=== PATIENT | female | born 1990 | race Caucasian/White ===

== ENCOUNTER 2017-12-20 08:00 | Day surgery (SDC) | payer OTHER ==
--- NOTE | 2017-12-20 06:03 | PDGENHP ---
History and Physical History and Physical: Assessment and Plan: 1. Dysmenorrhea Evelio's symptoms and exam findings are consistent with endometriosis. We reviewed all conservative and surgical options. Unfortunately she has failed medical management. As a result she is leaning towards robotic excision. She is going to give this consideration and determine when the best time would be. She is considering waiting until the end of the summer. She will call back when she is ready to schedule. If she has any questions or desires other treatment she will contact us. I likely would schedule about an hour and a half for OR room time. 2. Dyspareunia, female Subjective: Patient ID: Michelle James is a 27 y.o. female who presents to [facility] for pelvic pain. GILMA Fraser is a 27-year-old 0 woman. She has had dysmenorrhea for many years. She saw a practitioner who placed a Mirena IUD about 2 years ago. It did not improve her symptoms. In fact it made him somewhat worse. She also felt that and her partner felt that with intercourse. It was removed after 8 months. She had a pelvic ultrasound which was reportedly normal. He recently saw Dr. Cr Perry who discussed using ibuprofen, Neurontin, or laparoscopy. Her cycles are regular every 28 days. She will bleed 3-5 days with a light flow. The pain begins 4 days before her menses. The first 2 days of flow causes excruciating pain. It is mostly in the right lower quadrant with radiation towards her groin. She has occasional left-sided pain. She has deep dyspareunia. She uses a cannabis lubricant to try to help with the discomfort. She has no dyschezia chest pain or shortness of breath. She also has been trying an anti-inflammatory diet. She has used a control pill in the past but she felt very bad on it. She lives in [place]. She works in [employer]. She was referred by an acquaintance. PastMedicalHistory Past Medical History: Diagnosis Date Allergy to pollen Depression Depression Dermatologic disease Psoriasis Urinary tract infection PastSurgicalHistory Past Surgical History: Procedure Laterality Date WISDOM TOOTH EXTRACTION CURRENT MEDICATIONS: Current Outpatient Prescriptions Medication Sig ASHWAGANDHA ROOT EXTRACT,BULK, MISC ibuprofen (ADVIL,MOTRIN) 200 mg tablet Take 200 mg by mouth as needed for Pain. Take with food. multivitamin (HEXAVITAMIN) per tablet Take 1 tablet by mouth daily. No current facility-administered medications for this visit. ALLERGIES: Patient has no known allergies. I have reviewed, verified and agree with the past medical, surgical, , family, social and ROS history as documented by the RN today. Objective: Vital Signs: Visit Vitals BP 108/66 Pulse 75 Temp 37.3 C (99.2 F) (Temporal Artery) Resp 14 Ht 1.664 m (5' 5.5") Wt 53.3 kg (117 lb 6.4 oz) BMI 19.24 kg/m Physical Exam Gen: This is an alert, well developed woman in no distress. Neuro: She moves all extremities. Psych: She is appropriate, oriented, with normal affect. Neck: No thyroid enlargement, adenopathy, or tenderness. Lungs: Clear to ascultation, no wheezes or rales. Heart: Regular rate and rhythm without obvious murmurs. Abdomen: Soft, non-tender, without guarding, rebound, or masses. Extremities: No edema or cyanosis. Pelvic: Normal external genitalia. Non-gaping introitus, vagina without discharge, adequately estrogenized, no significant prolapse. Cervix without lesions or discharge. Uterus normal sized, mobile. Adnexa non-tender without enlargement. She is tender surrounding the cervix and exquisitely in the posterior cul-de-sac. There is a nodular area on the left side of the cul-de- sac. DATA: I have reviewed the pertinent medical records. TIME/COMMUNICATION: I personally spent a total of 50 minutes. Of that 40 minutes was counseling/ coordination of patient's care. See my note above for details. Yasmany Lincoln MD Board Certified Female Pelvic Medicine and Reconstructive Surgery Director of Minimally Invasive Gynecologic Surgery, [facility] Surgeon in Minimally Invasive Gynecologic Surgery [facility] Surgeon in Robotic Surgery
[2017-12-20] MEDS ORDERED: PHENAZOPYRIDINE HCL 200 MG TAB PO ONE (08:07)
[2017-12-20] MEDS ORDERED: ceFAZolin 2 GM/DEXTROSE 100 ML IV ONE (08:07)
[2017-12-20] MEDS ORDERED: GABAPENTIN 300 MG CAP PO ONE (08:07)
[2017-12-20] MEDS ORDERED: ACETAMINOPHEN 500 MG TAB PO ONE (08:07)
[2017-12-20] MEDS ORDERED: BUPIVACAINE/EPI 0.5% 30 ML SDV ONE (08:20)
[2017-12-20] MEDS ORDERED: LIDOCAINE 1% 2 ML INJ ID PRN (08:30)
[2017-12-20] MEDS ORDERED: LR 1,000 ML IV ONE (08:30)
--- NOTE | 2017-12-20 09:12 | PDHPUP ---
History & Physical Update H&P update statement: This history and physical update is based on an assessment of the patient which was completed after admission or registration (within 24 hours), but prior to the surgery/procedure. H&P update: H&P reviewed & patient examined, no change in patient's condition since H&P completed
[2017-12-20] MEDS ORDERED: MIDAZOLAM 2 MG/2 ML VIAL IVP ONE (09:18)
--- NOTE | 2017-12-20 09:18 | PDANEPAE ---
ANE History of Present Illness lap ANE Past Medical History - Cardiovascular History Hx Hypertension: No Hx Arrhythmias: No Hx Chest Pain: No Hx Coronary Artery / Peripheral Vascular Disease: No Hx CHF / Valvular Disease: No Hx Palpitations: No - Pulmonary History Hx COPD: No Hx Asthma/Reactive Airway Disease: No Hx Recent Upper Respiratory Infection: No Hx Oxygen in Use at Home: No Hx Sleep Apnea: No Sleep Apnea Screening Result - Last Documented: Negative - Neurologic History Hx Cerebrovascular Accident: No Hx Seizures: No Hx Dementia: No - Endocrine History Hx Diabetes: No Hypothyroid: No Hyperthyroid: No - Renal History Hx Renal Disorders: No - Liver History Hx Hepatic Disorders: No - Neurological & Psychiatric Hx Hx Neurological and Psychiatric Disorders: Yes Neurological / Psychiatric History Comment: depression - Cancer History Hx Cancer: No - Congenital Disorder History Hx Congenital Disorders: No - GI History Hx Gastrointestinal Disorders: No - Other Health History Other Health History: psoriasis. endometriosis - Chronic Pain History Chronic Pain: No - Surgical History Prior Surgeries: wisdom teeth ANE Review of Systems Review of systems is: negative Review of Systems: - Exercise capacity Exercise capacity: >=4 METS METS (RN): 5 METS ANE Patient History - Allergies Allergies/Adverse Reactions: latex Allergy (Verified 12/14/17 10:18) Other-Enter Comments - Home Medications Home medications: home medication list seen and reviewed Home Medications: Herbals/Supplements -Info Only 12/14/17 [Last Taken Unknown] - NPO status NPO Status: no food or drink >8 hours NPO Since - Liquids (Date): 12/20/17 NPO Since - Liquids (Time): 06:00 NPO Since - Solids (Date): 12/19/17 NPO Since - Solids (Time): 20:00 - Anes Hx Anes Hx: no prior problems Hx Anesthesia Complications (with details): car-sick - Smoking Hx Smoking Status: Former smoker - Family Anes Hx Family Hx Anesthesia Complications: none ANE Labs/Vital Signs - Vital Signs Blood Pressure: 120/75 Heart Rate: 76 Respiratory Rate: 16 O2 Sat (%): 100 Height: 167.64 cm Weight: 52.163 kg ANE Physical Exam - Airway Mallampati Score: Class 1 Mouth exam: normal dental/mouth exam - Pulmonary Pulmonary: no respiratory distress - Cardiovascular Cardiovascular: regular rate and rhythym - ASA Status ASA Status: I ANE Anesthesia Plan Anesthesia Plan: general endotracheal anesthesia
[2017-12-20] MEDS ORDERED: SCOPOLAMINE HYDROBROMIDE 1 MG/3 DAYS PATCH TD ONE ×2 (09:19→09:30)
[2017-12-20] MEDS ORDERED: ROCURONIUM 50 MG/5 ML VIAL ONE (09:26)
[2017-12-20] MEDS ORDERED: DEXAMETHASONE 4 MG/ML VIAL ONE (09:26)
[2017-12-20] MEDS ORDERED: fentaNYL 100 MCG/2 ML INJ ONE ×2 (09:26→11:15)
[2017-12-20] MEDS ORDERED: ONDANSETRON 4 MG/2 ML VIAL ONE ×2 (09:26→13:34)
[2017-12-20] MEDS ORDERED: KETOROLAC 30 MG/1 ML SDV ONE (09:26)
[2017-12-20] MEDS ORDERED: LIDOCAINE 2% 5 ML SDV ONE (09:27)
[2017-12-20] MEDS ORDERED: PROPOFOL 200 MG/20 ML VIAL ONE (09:27)
[2017-12-20] MEDS ORDERED: SUGAMMADEX SODIUM 200 MG/2 ML VIAL IVP ONE (10:41)
--- NOTE | 2017-12-20 10:56 | POSTOPPROG ---
Post Op Note Date of Operation: 12/20/17 Surgeon: Yasmany Lincoln Hydrometer Tester: Silvana diaz Anesthesiologist: Juan Braun Anesthesia: GET(General Endotracheal) Pre-op Diagnosis: Endometriosis Post-op Diagnosis: Same Procedure: Robotic excision of endo, bilat ureterolysis and ovarian pexy Findings: Endo Inf/Abcess present in the surg proc area at time of surgery?: No EBL: Minimal Complications: None
[2017-12-20] MEDS ORDERED: NS 500 ML IV PRN (11:07)
[2017-12-20] MEDS ORDERED: PROMETHAZINE HCL 25 MG/ML INJ IVP PRN (11:07)
[2017-12-20] MEDS ORDERED: ALBUTEROL 3 ML DEYVIAL IH PRN (11:07)
[2017-12-20] MEDS ORDERED: ONDANSETRON 4 MG/2 ML VIAL IVP PRN (11:07)
[2017-12-20] MEDS ORDERED: NALOXONE HCL 0.4 MG/ML INJ IVP PRN (11:07)
--- NOTE | 2017-12-20 11:07 | POSTANESTH ---
Post Anesthetic Evaluation Cardiovascular Status: Normal, Stable Respiratory Status: Normal, Stable Level of Consciousness/Mental Status: Can Participate in Eval Pain Control: Adequate, Prn Tx Ordered Nausea/Vomiting Control: Adequate, Prn Tx Ordered Complications Possibly Related to Anesthesia: None Noted
[2017-12-20] MEDS: fentaNYL 100 MCG/2 ML INJ IVP PRN ×3 (11:17→11:36)
[2017-12-20] MEDS ORDERED: HYDROCODONE/APAP 5/325 TAB PO ONE (12:45)
[2017-12-20 12:53] VITALS: BP 127/78
--- NOTE | 2017-12-20 18:16 | GOP ---
[f rep st] OPERATIVE REPORT DATE OF OPERATION: 12/20/2017 SURGEON: Yasmany Lincoln MD PRIMING MIXTURE CARRIER: Silvana Horowitz CFA ANESTHESIA: General. PREOPERATIVE DIAGNOSIS: 1. Endometriosis. 2. Dysmenorrhea. 3. Cyclic pelvic pain. POSTOPERATIVE DIAGNOSIS: 1. Endometriosis. 2. Dysmenorrhea. 3. Cyclic pelvic pain. PROCEDURE PERFORMED: 1. Robotic assisted excision of endometriosis in posterior cul-de-sac and bilateral ovarian fossae. 2. Bilateral ureterolysis. 3. Bilateral ovariopexy. FINDINGS: SPECIMENS: Pelvic peritoneum with endometriosis. ESTIMATED BLOOD LOSS: Scant. DESCRIPTION OF PROCEDURE: The patient was taken to the operating room. She was identified. General anesthesia was administered and found to be adequate. She was placed in the lithotomy position and prepared and draped in normal sterile fashion. A Mcnair catheter was placed in her bladder. A Hulka tenaculum was placed in the uterus for manipulation. A 1 cm infraumbilical incision was made with scalpel. The Veress needle with CO2 gas wand was advanc ed into the peritoneal cavity. The abdomen was insufflated with carbon dioxide gas. The 12 mm troca r, followed by the laparoscope were then inserted. The upper abdomen was unremarkable. No evidence of endometriosis on either diaphragm, liver, stomach, or gallbladder. 2 lateral ports on the left un lacey direct visualization. She then was placed in Trendelenburg position and the Da Abraham robot docke d on the left side. The instruments were then brought into the abdominal cavity under direct visuali zation. The pelvis was carefully examined. The anterior cul-de-sac was free of endometriosis. She had a per itoneal window in the posterior cul-de-sac underneath the cervix, more to the left of midline, than t he right. She had several saccular type lesions in the posterior cul-de-sac peritoneum just distal t o the rectum. She had a vesicular and multiple lehman lesions of endometriosis in both ovarian fossae o verlying both ureters. No endometriosis was seen on either ovary, the fallopian tube, or the uterus. The entire posterior cul-de-sac peritoneum from the distal rectum up to the cervix and laterally to i nclude both uterosacral ligaments was completely excised. A bilateral ovariopexy was performed given cyclic pelvic pain. Each ovary was attached to the ipsilateral round ligaments near the internal in guinal ring with 3-0 Vicryl Rapide suture. The patient required a bilateral ureterolysis to safely r emove all endometriosis overlying both ureters, in the ovarian fossae. The peritoneum at the pelvic brim was incised. The ureters were gently dissected free from the pelvic brim all the way down to th e uterine arteries, lateralizing them off the overlying peritoneum and endometriosis. Once this was accomplished, the overlying peritoneum and endometriosis was completely excised. The p kilo was then irrigated with sterile saline and hemostasis was present. The robot was then undocked . The fascia was closed with 0 Vicryl. The skin with 4-0 Monocryl and surgical adhesive. Anesthesi a was reversed. The patient taken the PACU awake in stable condition. COMPLICATIONS: None. DISPOSITION: Patient stable to PACU. /[id number]/MODL
[2017-12-21] MEDS ORDERED: PATCH REMOVAL 1 EA PATCH TD ONE (09:18)
[2017-12-23] MEDS ORDERED: PATCH REMOVAL 1 EA PATCH TD SCH (09:18)
== END 2017-12-20 13:48 | disposition home or self-care (01) ==
LOC: FSGY 08:00
PROVIDERS: ATTEND Obstetrics & Gynecology
PROC: 0UBF8ZX Excision of Cul-de-sac, Via Natural or Artificial Opening Endoscopic, Diagnostic (ICD-10-PCS; principal; 2017-12-20 09:45)
PROC: 8E0Y4CZ Robotic Assisted Procedure of Lower Extremity, Percutaneous Endoscopic Approach (ICD-10-PCS; principal; 2017-12-20 09:45)
PROC: 0US28ZZ Reposition Bilateral Ovaries, Via Natural or Artificial Opening Endoscopic (ICD-10-PCS; principal; 2017-12-20 09:45)
PROC: 0UB28ZX Excision of Bilateral Ovaries, Via Natural or Artificial Opening Endoscopic, Diagnostic (ICD-10-PCS; principal; 2017-12-20 09:45)
DX: N80.3 Endometriosis of pelvic peritoneum (principal); N94.6 Dysmenorrhea, unspecified; R10.2 Pelvic and perineal pain; N94.10 Unspecified dyspareunia
CPT/HCPCS: J0690; J1100; J1885; J2250; J2405; J2704; J3010